=== PATIENT | male | born 1950 | race Caucasian/White ===

== ENCOUNTER → 2017-11-24 | Day surgery (SDC) | payer OTHER ==
[2017-11-17 12:34] VITALS: BMI 22.0
[~2017-11-24] VITALS: Ht 175.3 cm; Wt 68.2 kg
[~2017-11-24] MED LIST: FOLI1TAB8 PO; FURO-85 PO; LIDOCAINE HCL 2% 2 ML VIAL (20MG/ML) ONE; MCRK20 PO; MGNO400 PO; PRLSR20 PO; PROPOFOL IV EMULSION 10 MG/ML 20 ML VIAL ONE; SODIUM CHLORIDE 0.9% 500ML 500 ML IV ONE
--- NOTE | 2017-11-24 08:36 | Endo History and Physical ---
History & Physical Date of Service: November 24, 2017. 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 Past Surgical History Hx Cardiac Surgery: No Hx Internal Defibrillator: No Hx Pacemaker: No Hx Abdominal Surgery: No Hx of Implantable Prosthesis: No Hx Post-Op Nausea and Vomiting: No Hx Cancer Surgery: No Hx Thoracic Surgery: No Hx Orthopedic: No Hx Urinary Tract Surgery: No Family History Esophogeal CA Social History Smoking Status: Current Every Day Smoker Hx Substance Use: No Hx Alcohol Use: Yes ( AROUND 10 SHOTS OF NICO CHRISTINE A DAY) Allergies Coded Allergies: No Known Allergies (Verified , 11/17/17) Current Medications Reported Home Medications Medications Dose Route/Sig Max Daily Dose Days Date Category Prilosec (Omeprazole) 20 Mg Capcr 20 Mg PO DAILY 11/17/17 Reported Lasix (Furosemide) 20 Mg Tab 1 Tab PO DAILY 90 11/17/17 Reported Klor-Con M20 (Potassium Chloride) 20 Meq Tabcr 20 Meq PO DAILY 06/11/17 Rx Magnesium-Oxide (Magnesium Oxide) 400 Mg Tab 400 Mg PO BID 30 06/11/17 Rx Folvite (Folic Acid) 1 Mg Tab 1 Mg PO DAILY 06/09/17 Reported Vital Signs Weight (Kilograms): 68.18 Height (Feet): 5 Height (Inches): 9 Physical Exam General Appearance: no apparent distress Respiratory/Chest: Auscultation: breath sounds normal, no rhonchi Cardiovascular: Heart Auscultation: RRR Abdomen: Inspection & Palpation: soft, non-distended Assessment and Plan Stable for EGD
[2017-11-24 08:53] VITALS: Ht 175.3 cm; Wt 68.2 kg
--- NOTE | 2017-11-24 10:16 | GI REPORT ---
Patient Name: Howie Cunningham Procedure Date: 11/24/2017 9:38 AM Date of : 1950 Admit Type: Outpatient Age: 67 Gender: Male Attending MD: John Butler MD Procedure: Upper GI endoscopy Providers: John Butler MD Referring MD: Lam Perry Indications: Cirrhosis rule out esophageal varices Medicines: Monitored Anesthesia Care Complications: No immediate complications. Estimated Blood Loss: Estimated blood loss: none. Procedure: Pre-Anesthesia Assessment: - Prior to the procedure, a History and Physical was performed, and patient medications and allergies were reviewed. The patient is competent. The risks and benefits of the procedure and the sedation options and risks were discussed with the patient. All questions were answered and informed consent was obtained. Patient identification and proposed procedure were verified by the physician and the nurse in the procedure room. Mental Status Examination: alert and oriented. Airway Examination: normal oropharyngeal airway and neck mobility. Respiratory Examination: clear to auscultation. CV Examination: normal. ASA Grade Assessment: III - A patient with severe systemic disease. After reviewing the risks and benefits, the patient was deemed in satisfactory condition to undergo the procedure. The anesthesia plan was to use monitored anesthesia care (MAC). Immediately prior to administration of medications, the patient was re-assessed for adequacy to receive sedatives. The heart rate, respiratory rate, oxygen saturations, blood pressure, adequacy of pulmonary ventilation, and response to care were monitored throughout the procedure. The physical status of the patient was re-assessed after the procedure. After obtaining informed consent, the endoscope was passed under direct vision. Throughout the procedure, the patient's blood pressure, pulse, and oxygen saturations were monitored continuously. The scope was introduced through the mouth, and advanced to the second part of duodenum. The upper GI endoscopy was accomplished without difficulty. The patient tolerated the procedure well. Findings: The Z-line was found 40 cm from the incisors. Grade I, single column varices were found in the lower third of the esophagus. No red liz sign. Severe portal hypertensive gastropathy was found in the gastric fundus and in the gastric body. A single 8 mm sessile polyp was found in the duodenal bulb. The polyp was removed with a saline injection-lift technique using a hot snare. Resection and retrieval were complete. Verification of patient identification for the specimen was done by the physician and nurse using the patient's name and date. To prevent bleeding after the polypectomy, three hemostatic clips were successfully placed (MR conditional). There was no bleeding at the end of the procedure. The second portion of the duodenum was normal. Impression: - Z-line, 40 cm from the incisors. - Grade I esophageal varices. - Portal hypertensive gastropathy. - A single duodenal polyp. Resected and retrieved. Clips (MR conditional) were placed. - Normal second portion of the duodenum. Recommendation: - Discharge patient to home. - Full liquid diet today. - Continue Prilosec (omeprazole) 20 mg PO daily. - Repeat upper endoscopy in 6 months for surveillance of the varices. - Can start a beta sandra with dosage titrated by the heart rate. - Return to referring physician. John Butler MD 11/24/2017 10:15:32 AM This report has been signed electronically. Note Initiated On: 11/24/2017 9:38 AM Number of Addenda: 0 I attest to the content of the Intraoperative Record and orders documented therein, exceptions below {[id number]}
--- NOTE | 2017-11-24 10:17 | Discharge Instructions ---
Endoscopy Patient Instructions Date / Procedure(s) Performed November 24, 2017. EGD Allergy Information Coded Allergies: No Known Allergies (Verified , 11/17/17) Discharge Date / Findings November 24, 2017. Grade I esophageal Varices. Portal HTN gastropathy Duodenal polyp, removed and clipped. Provider Instructions Activity Restrictions - No exercising or heavy lifting for 24 hours. - Do not drink alcohol the day of the procedure. - Do not drive a car or operate machinery until the day after the procedure. - Do not make any important decisions or sign important papers in 24 hours after the procedure. Following Day: - Return to full activity which may include returning to work/school. Diet Start your diet with liquids and light foods (jello, soup, juice, toast). Then eat your usual diet if not nauseated. Treatment For Common After Affects For mild abdominal pain, bloating, or excessive gas: - Rest - Eat lightly - Lie on right side Follow-Up Information Follow-up with DR DUCKWORTH as scheduled Anesthesia Information What You Should Know You have had a procedure that required some medicine to reduce anxiety and discomfort. This treatment is called moderate sedation. After receiving the treatment, you may be sleepy, but you will be able to breathe on your own. The effects of the treatment may last for several hours. Follow these instructions along with Activity/Diet recommendations noted above: * Do NOT do anything where dizziness or clumsiness would be dangerous. * Rest quietly at home today, then you can be up and about tomorrow. * Have a responsible person stay with you the rest of today. * You may have had an I.V. today. If so, you may take the dressing off later today. Recommendations Call your doctor if: * Trouble breathing * Continuous vomiting for more than 24 hours * Temperature above 101 degrees * Severe abdominal pain or bloating * Pain not relieved by pain medicine ordered * There is increased drainage or redness from any incision * A large amount of rectal bleeding greater than 2-3 tablespoons. (If you had a polyp/s removed or have hemorrhoids, a small amount of blood - from the rectum is to be expected.) * You have any unanswered questions or concerns. IN THE EVENT OF A SERIOUS EMERGENCY, GO TO THE NEAREST EMERGENCY ROOM Your discharge instructions were prepared by provider John Butler. Patient Instructions Signature Page Howie Marisa Patient (or Guardian) Signature/Date: I have read and understand the instructions given to me by my caregivers. Caregiver/RN/Doctor Signature/Date: The above-named patient and/or guardian has received patient instructions on this date. + Original Patient Signature Page (only) stays with chart. Please make copy for patient.
--- NOTE | 2017-11-24 10:30 | Anesthesiology Progress Note ---
Anesthesia Post Op Note Date & Time November 24, 2017 at 10:29 Vital Signs Pain Intensity: 2 Vital Signs Past 12 Hours Date Time Temp Pulse Resp B/P (MAP) Pulse Ox O2 Delivery O2 Flow Rate FiO2 11/24/17 10:24 89 18 129/87 (101) 97 Room Air 11/24/17 10:09 36.5 92 18 95/61 (72) 97 Room Air 11/24/17 08:52 36.5 88 18 126/72 (90) 100 Room Air Notes Mental Status: alert / awake / arousable, participated in evaluation Pt Amnestic to Procedure: Yes Nausea / Vomiting: adequately controlled Pain: adequately controlled Airway Patency, RR, SpO2: stable & adequate BP & HR: stable & adequate Hydration State: stable & adequate Anesthetic Complications: no major complications apparent
[2017-11-24 11:02] VITALS: BP 121/93; PULSE 87; O2SAT 98
== END | disposition home or self-care (01) ==
LOC: C.GI 08:19
PROVIDERS: ATTEND Student in an Organized Health Care Education/Training Program
DX: K70.30 Alcoholic cirrhosis of liver without ascites (principal); I85.00 Esophageal varices without bleeding; K31.89 Other diseases of stomach and duodenum; I10 Essential (primary) hypertension; Z80.0 Family history of malignant neoplasm of digestive organs; F17.200 Nicotine dependence, unspecified, uncomplicated; Z79.899 Other long term (current) drug therapy

== ENCOUNTER 2020-12-09 20:09 | Inpatient (IN) ==
[2020-12-09] MEDS ORDERED: SODIUM CHLORIDE 0.9% 1000ML 1,000 ML IV STA (20:40)
--- NOTE | 2020-12-09 20:51 | Emergency Department Note ---
Impression & Plan Chills with fever, Nausea & vomiting, Elevated WBC count, Diarrhea ED Provider Note Provider: Jean-Pierre Ribeiro MD DATE OF SERVICE: 12/09/2020 CHIEF COMPLAINT: Fevers, nausea vomiting, diarrhea HISTORY OF PRESENT ILLNESS: Patient is a 70-year-old gentleman past medical history of cirrhosis and hypertension presenting here today reporting that today he began to experience a brief period lasting several minutes of the lower abdominal pain but then felt decreased appetite and chills throughout the day. States he developed a fever of 101 Fahrenheit and was not feeling very good. States he was nauseous and vomited and had an episode or 2 of some watery diarrhea. Denies any blood in this. Denies any falls or syncope. Denies any chest pain or shortness of breath. Patient states about 2 weeks ago he had carotid stenting done at [facility] since that time had a little bit of pressure on the right side of his head but this unchanged. Denies any new numbness or weakness or acute visual changes. Patient has been taking aspirin and Plavix and took this later this afternoon around 3 PM as he was feeling little bit off; usually takes it around noon. States upon arrival here at the emergency department he is feeling improved. Denies significant plaints now. Denies abdominal tenderness. Denies recent sick contacts. Patient denies recent antibiotics. REVIEW OF SYSTEMS: A total of 10 review of systems was obtained and negative except as stated above in the HPI. PAST MEDICAL HISTORY: As noted above MEDICATIONS: Reviewed home medications includes full dose aspirin and Plavix SOCIAL HISTORY: Lives at home with , occasional alcohol PHYSICAL EXAM: GENERAL: alert and oriented in no acute distress on stretcher Head: normocephalic and atraumatic EYES: No injection, discharge or icterus. NECK: Trachea midline. Supple. ENT: Mucous membranes pink and moist. LUNGS: Airway patent. No retractions. Breath sounds clear HEART: Regular rate and rhythm. No chest wall tenderness ABDOMEN: Soft and non-tender, without guarding or rebound. No masses appreciated. SKIN: Acyanotic, warm, dry, without rashes EXTREMITIES: 1+ lower extremity edema. Some slight tenderness of the bilateral feet and slight decrease in sensation here which he states is at baseline. NEUROLOGICAL: No aphasia. No facial droop or slurred speech. No significant numbness in the upper extremities. Reports a little bit of chronic numbness in the lower extremities related to his underlying neuropathy. EK beats. Sinus tachycardia. No PVC or PAC. No acute ST segment elevation or depression with left axis. QTC 471. CONTINUOUS CARDIAC MONITORING: was ordered and showed a heart rate of 90s-120s bpm in normal sinus rhythm to sinus tachycardia 1 CXR: Per my interpretation no evidence acute pneumothorax or pneumonia. No cardiomegaly. No pleural effusion. Patient's laboratory studies and imaging reviewed. Differential includes Infection, dehydration, metabolic abnormality, hypo/hyperglycemia, electrolyte disturbance, anemia, hypoxia, cardiac sources, intracerebral event, toxicologic, neurologic, as well as other pathologies. IMPRESSION/MEDICAL DECISION MAKING: Patient presents here complaining of feeling off today with fever nausea vomiting slight diarrhea and very transient abdominal discomfort. Patient states he feels better now. Benign abdomen at this point does have a lower suspicion for acute intra-abdominal pathology. Afebrile here. Did take some as pirin this afternoon one of his normal medications. Wonder if this caused his fever to break it him to feel improved. Does report significant chills earlier as well. Denies any shortness of breath. Denies any new neurological symptoms. Little bit of dull head pressure he reports that this is been chronic since carotid stenting 2 weeks ago. Slight tachycardic here but not hypoxic or febrile. Leukocytosis of 17. Lactate of 2.4; very slightly elevated but I doubt septic shock. Procalcitonin not significantly elevated. UA not suggestive of infection. Covid test negative. No evidence of transaminitis. No evidence of pancreatitis. Benign abdomen at this point. No signs of electrolyte abnormality or renal dysfunction. Multiple discussions with the patient and his daughter at bedside. Given his complaints of fever and chills earlier with a leukocytosis recommended further observation here in the hospital. Patient strongly wished to go home. Discussed that I do not have a clear source of infection at this point. Does not seem consistent with C. difficile colitis. There is no other sick contacts. Patient does not appear meningitic there is no significant swelling of his neck. I doubt he has a carotid stent infection. Patient denies any open wounds. After multiple discussions the patient developed some chills and was feeling quite cold and his daughter was able to convince him to stay. We will empirically give him a dose of ceftriaxone at this time. Blood cultures and urine culture have been obtained. Patient did receive 2 L of IV fluid. DIAGNOSIS: Fever and chills, nausea and vomiting, elevated white blood cell count, diarrhea DISPOSITION: Hospitalist will evaluate Patient was agreeable with this plan. Past Med/Surg History Medical History (Updated 12/09/20 @ 23:20 by Jean-Pierre Ribeiro M.D.) Alcoholic cirrhosis Barretts esophagus Bulging disc STEROID INJECTIONS Chronic back pain Fatty liver GERD (gastroesophageal reflux disease) Hearing deficit Hypertension Peripheral neuropathy Surgical History History of colonoscopy History of esophagogastroduodenoscopy (EGD) History of nasal surgery GROWTH REMOVAL History of tooth extraction Pilonidal cyst REMOVAL Family History (Updated 06/06/18 @ 08:28 by Lety Ortiz RN) Grandmother Family history of diabetes mellitus Family/Other Family history of diabetes mellitus Brother Family history of esophageal cancer Social History Smoking Status: Current every day smoker Tobacco Type: Cigarettes Cigarettes Per Day: 20 CIG DAILY; Second Hand Exposure: Yes; Hx Alcohol Use: Yes Alcohol type: hard liquor Hx Substance Use: No Preferred Language: Wallisian Communication Ability: Effective Hospice Executive Director Required: No Beliefs That Will Affect Care: None Current Living Situation: Spouse Feels Safe at Home: Yes Assistive Devices: Cane, Denture - Upper, Denture - Lower, Glasses and Hearing Aid - Bilateral Allergies Allergies Allergy/AdvReac Type Severity Reaction Status Date / Time No Known Allergies Allergy Unknown Verified 12/09/20 20:52 Home Meds Home Medications Medication Instructions Recorded Confirmed folic acid 1 mg PO DAILY 06/06/18 12/09/20 furosemide [Lasix] 20 mg PO QAM 06/06/18 12/09/20 omeprazole 20 mg PO QAM 06/06/18 12/09/20 potassium chloride 20 meq PO QAM 06/06/18 12/09/20 thiamine HCl (vitamin B1) [Vitamin 100 mg PO DAILY 06/06/18 12/09/20 B-1] aspirin 325 mg PO DAILY 12/09/20 12/09/20 atorvastatin 40 mg PO DAILY 12/09/20 12/09/20 cholecalciferol (vitamin D3) 10 mcg PO DAILY 12/09/20 12/09/20 [Vitamin D3] clopidogrel [Plavix] 75 mg PO DAILY 12/09/20 12/09/20 cyanocobalamin (vitamin B-12) 1,000 mcg PO DAILY 12/09/20 12/09/20 [Vitamin B-12] magnesium oxide 400 mg PO BID 12/09/20 12/09/20 propranolol 10 mg PO BID 12/09/20 12/09/20 Results & Data (ED) Vital Signs Vital Signs - 24 hr 12/09/20 20:20 12/09/20 20:49 12/09/20 20:55 Temperature 36.9 C Temperature Source Temporal Artery Scan Pulse Rate 122 H 104 H Pulse Rate [Apical] 107 H Pulse Rate from SpO2 Sensor 104 H Pulse Rhythm [Apical] Regular Pulse Strength [Apical] Normal Respiratory Rate 18 17 18 Respiratory Effort / Characteristics Non-Labored Spontaneous Non-Labored Spontaneous Respiratory Depth Normal Normal Respiratory Pattern Regular Blood Pressure 121/81 138/79 Blood Pressure [Left Arm] 138/79 Blood Pressure Mean 94 98 Blood Pressure Mean [Left Arm] 98 Blood Pressure Position Sitting Blood Pressure Position [Left Arm] Lying Pulse Oximetry 98 100 100 Oxygen Delivery Method Room Air Room Air Sepsis Recent Fever Within 48 Hours No Sepsis New/Unexplained Change in Mental Status N/A Sepsis Action Taken by Nursing No Action Required 12/09/20 21:58 12/09/20 23:00 12/09/20 23:30 Temperature Temperature Source Pulse Rate 101 H 104 H 106 H Pulse Rate [Apical] Pulse Rate from SpO2 Sensor 101 H 104 H 106 H Pulse Rhythm [Apical] Pulse Strength [Apical] Respiratory Rate 17 20 18 Respiratory Effort / Characteristics Respiratory Depth Respiratory Pattern Blood Pressure 148/81 H Blood Pressure [Left Arm] Blood Pressure Mean 103 Blood Pressure Mean [Left Arm] Blood Pressure Position Blood Pressure Position [Left Arm] Pulse Oximetry 100 100 99 Oxygen Delivery Method Room Air Sepsis Recent Fever Within 48 Hours Sepsis New/Unexplained Change in Mental Status Sepsis Action Taken by Nursing Laboratory Data Result diagrams: 12/09/20 21:11 12/09/20 21:11 Lab Results 12/09/20 12/09/20 12/09/20 Range/Units 20:57 20:57 21:11 WBC (4.8-10.8) K/uL RBC (4.7-6.1) M/uL Hgb (14.0-18.0) g/dL Hct (42-52) % MCV (80-100) fL MCH (25-34) pg MCHC (32-36) g/dL RDW Std Deviation (36.4-46.3) fL RDW Coeff of Gucci (11.5-14.5) % Plt Count (130-400) K/uL MPV (7.4-10.4) fL Immature Gran % (Auto) % Neut % (Auto) % Lymph % (Auto) % [place] % (Auto) % Eos % (Auto) % Baso % (Auto) % Neut # (Auto) (1.4-6.5) K/uL Lymph # (Auto) (1.2-3.4) K/uL [place] # (Auto) (0.11-0.59) K/uL Eos # (Auto) (0-0.5) K/uL Baso # (Auto) (0-0.2) K/uL Immature Gran # (Auto) (0.00-0.02) K/uL PT 10.3 (9.0-12.0) Seconds INR 1.0 (0.9-1.1) Sodium (136-145) mmol/L Potassium (3.5-5.1) mmol/L Chloride (98-107) mmol/L Carbon Dioxide (21-32) mmol/L Anion Gap (3-11) BUN (7-18) mg/dl Creatinine (0.6-1.4) mg/dl Est Cr Clr Drug Dosing ml/min Est GFR ( Amer) ml/min Est GFR (Non-Af Amer) ml/min BUN/Creatinine Ratio (10-20) Glucose (70-99) mg/dl Lactate (0.4-2.0) mmol/L Calcium (8.5-10.1) mg/dl Total Bilirubin (0.2-1) mg/dl AST (15-37) U/L ALT (12-78) U/L Alkaline Phosphatase (45-117) U/L Troponin I (0-0.045) ng/ml Total Protein (6.4-8.2) gm/dl Albumin (3.4-5.0) gm/dl Globulin (2.5-4.0) gm/dl Albumin/Globulin Ratio (0.9-2) Lipase (73-393) U/L Procalcitonin (0-0.5) ng/ml Urine Color Urine Appearance (Clear) Urine pH (4.5-7.5) Ur Specific [place] (1.000-1.030) Urine Protein (Negative) Urine Glucose (UA) (Negative) Urine Ketones (Negative) Urine Blood (Negative) Urine Nitrite (Negative) Urine Bilirubin (Negative) Urine Urobilinogen (Negative) Ur Leukocyte Esterase (Negative) Urine WBC (Auto) (0-5) /hpf Urine RBC (Auto) (0-4) /hpf U Hyaline Cast (Auto) (0-5) /lpf U Epithel Cells (Auto) (0-5) /lpf Urine Bacteria (Auto) (Negative) COVID-19 Eval Order Covid19 at [facility] SARS-CoV-2 (PCR) NEGATIVE (Negative) 12/09/20 12/09/20 12/09/20 Range/Units 21:11 21:11 21:11 WBC 17.32 H (4.8-10.8) K/uL RBC 4.27 L (4.7-6.1) M/uL Hgb 14.3 (14.0-18.0) g/dL Hct 42.6 (42-52) % MCV 99.8 (80-100) fL MCH 33.5 (25-34) pg MCHC 33.6 (32-36) g/dL RDW Std Deviation 50.9 H (36.4-46.3) fL RDW Coeff of Gucci 14.1 (11.5-14.5) % Plt Count 269 (130-400) K/uL MPV 10.3 (7.4-10.4) fL Immature Gran % (Auto) 0.3 % Neut % (Auto) 89.5 % Lymph % (Auto) 5.8 % [place] % (Auto) 4.2 % Eos % (Auto) 0.0 % Baso % (Auto) 0.2 % Neut # (Auto) 15.51 H (1.4-6.5) K/uL Lymph # (Auto) 1.00 L (1.2-3.4) K/uL [place] # (Auto) 0.72 H (0.11-0.59) K/uL Eos # (Auto) 0.00 (0-0.5) K/uL Baso # (Auto) 0.04 (0-0.2) K/uL Immature Gran # (Auto) 0.05 H (0.00-0.02) K/uL PT (9.0-12.0) Seconds INR (0.9-1.1) Sodium 138 (136-145) mmol/L Potassium 3.8 (3.5-5.1) mmol/L Chloride 104 (98-107) mmol/L Carbon Dioxide 25 (21-32) mmol/L Anion Gap 9.0 (3-11) BUN 9 (7-18) mg/dl Creatinine 0.98 (0.6-1.4) mg/dl Est Cr Clr Drug Dosing 72.1 ml/min Est GFR ( Amer) 91.4 ml/min Est GFR (Non-Af Amer) 78.9 ml/min BUN/Creatinine Ratio 9.6 L (10-20) Glucose 112 H (70-99) mg/dl Lactate (0.4-2.0) mmol/L Calcium 9.6 (8.5-10.1) mg/dl Total Bilirubin 0.9 (0.2-1) mg/dl AST 26 (15-37) U/L ALT 25 (12-78) U/L Alkaline Phosphatase 102 (45-117) U/L Troponin I < 0.015 (0-0.045) ng/ml Total Protein 8.3 H (6.4-8.2) gm/dl Albumin 4.0 (3.4-5.0) gm/dl Globulin 4.3 H (2.5-4.0) gm/dl Albumin/Globulin Ratio 0.9 (0.9-2) Lipase 102 (73-393) U/L Procalcitonin 0.06 (0-0.5) ng/ml Urine Color Urine Appearance (Clear) Urine pH (4.5-7.5) Ur Specific [place] (1.000-1.030) Urine Protein (Negative) Urine Glucose (UA) (Negative) Urine Ketones (Negative) Urine Blood (Negative) Urine Nitrite (Negative) Urine Bilirubin (Negative) Urine Urobilinogen (Negative) Ur Leukocyte Esterase (Negative) Urine WBC (Auto) (0-5) /hpf Urine RBC (Auto) (0-4) /hpf U Hyaline Cast (Auto) (0-5) /lpf U Epithel Cells (Auto) (0-5) /lpf Urine Bacteria (Auto) (Negative) COVID-19 Eval Order SARS-CoV-2 (PCR) (Negative) 12/09/20 12/09/20 12/09/20 Range/Units 21:11 22:09 23:26 WBC (4.8-10.8) K/uL RBC (4.7-6.1) M/uL Hgb (14.0-18.0) g/dL Hct (42-52) % MCV (80-100) fL MCH (25-34) pg MCHC (32-36) g/dL RDW Std Deviation (36.4-46.3) fL RDW Coeff of Gucci (11.5-14.5) % Plt Count (130-400) K/uL MPV (7.4-10.4) fL Immature Gran % (Auto) % Neut % (Auto) % Lymph % (Auto) % [place] % (Auto) % Eos % (Auto) % Baso % (Auto) % Neut # (Auto) (1.4-6.5) K/uL Lymph # (Auto) (1.2-3.4) K/uL [place] # (Auto) (0.11-0.59) K/uL Eos # (Auto) (0-0.5) K/uL Baso # (Auto) (0-0.2) K/uL Immature Gran # (Auto) (0.00-0.02) K/uL PT (9.0-12.0) Seconds INR (0.9-1.1) Sodium (136-145) mmol/L Potassium (3.5-5.1) mmol/L Chloride (98-107) mmol/L Carbon Dioxide (21-32) mmol/L Anion Gap (3-11) BUN (7-18) mg/dl Creatinine (0.6-1.4) mg/dl Est Cr Clr Drug Dosing ml/min Est GFR ( Amer) ml/min Est GFR (Non-Af Amer) ml/min BUN/Creatinine Ratio (10-20) Glucose (70-99) mg/dl Lactate 2.4 H* 1.9 (0.4-2.0) mmol/L Calcium (8.5-10.1) mg/dl Total Bilirubin (0.2-1) mg/dl AST (15-37) U/L ALT (12-78) U/L Alkaline Phosphatase (45-117) U/L Troponin I (0-0.045) ng/ml Total Protein (6.4-8.2) gm/dl Albumin (3.4-5.0) gm/dl Globulin (2.5-4.0) gm/dl Albumin/Globulin Ratio (0.9-2) Lipase (73-393) U/L Procalcitonin (0-0.5) ng/ml Urine Color Dark Yellow Urine Appearance Clear (Clear) Urine pH 6.0 (4.5-7.5) Ur Specific [place] 1.024 (1.000-1.030) Urine Protein Negative (Negative) Urine Glucose (UA) Negative (Negative) Urine Ketones Trace H (Negative) Urine Blood Negative (Negative) Urine Nitrite Negative (Negative) Urine Bilirubin 1+ H (Negative) Urine Urobilinogen Negative (Negative) Ur Leukocyte Esterase Trace H (Negative) Urine WBC (Auto) 1-5 (0-5) /hpf Urine RBC (Auto) 0-4 (0-4) /hpf U Hyaline Cast (Auto) 1-5 (0-5) /lpf U Epithel Cells (Auto) 5-10 H (0-5) /lpf Urine Bacteria (Auto) Negative (Negative) COVID-19 Eval Order SARS-CoV-2 (PCR) (Negative) Administered Medications Discontinued Medications Sodium Chloride (Nss 1000ml) 1,000 mls @ 999 mls/hr IV .Q1H1M STA Stop: 12/09/20 21:40 Last Infusion: 12/09/20 22:30 Dose: 0 mls/hr Documented by: [id number] Admin: 12/09/20 21:27 Dose: 999 mls/hr Documented by: [id number] Ceftriaxone Sodium (Rocephin) 2,000 mg in 70 mls @ 140 mls/hr IV NOW STA Stop: 12/09/20 23:37 Last Infusion: 12/10/20 00:01 Dose: 0 mls/hr Documented by: [id number] Admin: 12/09/20 23:22 Dose: 140 mls/hr Documented by: [id number] Sodium Chloride (Nss 1000ml) 1,000 mls @ 999 mls/hr IV .Q1H1M ONE Stop: 12/10/20 00:19 Last Infusion: 12/10/20 00:29 Dose: 0 mls/hr Documented by: [id number] Admin: 12/09/20 23:22 Dose: 999 mls/hr Documented by: [id number] Discharge Plan Visit Data Chief Complaint: Abdominal Pain Stated Complaint: AB PAIN, CHILLS, VOMIT ED Provider: Jean-Pierre Ribeiro Discharge Problem: Chills with fever, Nausea & vomiting, Elevated WBC count, Diarrhea Patient Disposition: Being Evaluated by Hospitalist Prescriptions Prescriptions: No Action thiamine HCl (vitamin B1) [Vitamin B-1] 100 mg Tablet 100 mg PO DAILY RF: 0 omeprazole 20 mg Capsule,Delayed Release(Dr/Ec) 20 mg PO QAM RF: 0 folic acid 1 mg Tablet 1 mg PO DAILY RF: 0 furosemide [Lasix] 20 mg Tablet 20 mg PO QAM RF: 0 potassium chloride 20 mEq Tablet Extended Release 20 meq PO QAM RF: 0 atorvastatin 40 mg tablet 40 mg PO DAILY RF: 0 cyanocobalamin (vitamin B-12) [Vitamin B-12] 1,000 mcg Tablet 1,000 mcg PO DAILY RF: 0 clopidogrel [Plavix] 75 mg Tablet 75 mg PO DAILY RF: 0 propranolol 10 mg Tablet 10 mg PO BID RF: 0 aspirin 325 mg Tablet,Delayed Release (Dr/Ec) 325 mg PO DAILY RF: 0 cholecalciferol (vitamin D3) [Vitamin D3] 10 mcg (400 unit) Tablet 10 mcg PO DAILY RF: 0 magnesium oxide 400 mg magnesium Tablet 400 mg PO BID RF: 0 Referrals Referrals: Lizeth Dixon MD [Primary Care Provider] - Discharge Problem: Nausea & vomiting Qualifiers: Vomiting type: unspecified Vomiting Intractability: non-intractable Qualified Code(s): R11.2 - Nausea with vomiting, unspecified Elevated WBC count Qualifiers: Leukocytosis type: unspecified Qualified Code(s): D72.829 - Elevated white blood cell count, unspecified Diarrhea Qualifiers: Diarrhea type: unspecified type Qualified Code(s): R19.7 - Diarrhea, unspeci fied
[2020-12-09 21:29] LABS: Basophils # (auto) 0.04 K/uL (0-0.2); Basophils % (auto) 0.2 %; Hematocrit (blood only) 42.6 % (42-52); Hemoglobin 14.3 g/dL (14.0-18.0); Immature Granulocytes # (auto) 0.05 K/uL (0.00-0.02); Immature Granulocytes % (auto) 0.3 %; Lymphocytes % (auto) 5.8 %; Mean Corpuscular Hemoglobin 33.5 pg (25-34); Mean Corpuscular Hgb Conc 33.6 g/dL (32-36); Mean Corpuscular Volume 99.8 fL (80-100); Mean Platelet Volume 10.3 fL (7.4-10.4); Monocytes # (auto) 0.72 K/uL (0.11-0.59); Monocytes % (auto) 4.2 %; Neutrophils # (auto) 15.51 K/uL (1.4-6.5); Neutrophils % (auto) 89.5 %; Platelet Count 269 K/uL (130-400); RDW Coefficient of Variation 14.1 % (11.5-14.5); RDW Standard Deviation 50.9 fL (36.4-46.3); Red Blood Count 4.27 M/uL (4.7-6.1); White Blood Count 17.32 K/uL (4.8-10.8)
[2020-12-09 21:41] LABS: Prothrombin Time 10.3 Seconds (9.0-12.0)
[2020-12-09 21:50] LABS: Alanine Aminotransferase 25 U/L (12-78); Aspartate Aminotransferase 26 U/L (15-37); BUN Creatinine Ratio 9.6 (10-20); Blood Urea Nitrogen 9 mg/dl (7-18); Calcium 9.6 mg/dl (8.5-10.1); Carbon Dioxide 25 mmol/L (21-32); Chloride 104 mmol/L (98-107); Creatinine Clr Calc Pharmacy 72.1 ml/min; Est GFR (African American) 91.4 ml/min; Est GFR (Non-African American) 78.9 ml/min; Glucose 112 mg/dl (70-99); Lipase 102 U/L (73-393); Potassium 3.8 mmol/L (3.5-5.1); Sodium 138 mmol/L (136-145)
[2020-12-09 21:55] LABS: Albumin Globulin Ratio 0.9 (0.9-2); Alkaline Phosphatase 102 U/L (45-117); Bilirubin,Total 0.9 mg/dl (0.2-1); Globulin 4.3 gm/dl (2.5-4.0); Total Protein 8.3 gm/dl (6.4-8.2); Troponin I < 0.015 ng/ml (0-0.045)
[2020-12-09 22:56] LABS: Appearance Urine Clear (Clear); Bacteria Urine Automated Negative (Negative); Blood Urine Negative (Negative); Color Urine Dark Yellow; Glucose Urine UA Negative (Negative); Ketones Urine Trace (Negative); Leukocyte Esterase Urine Trace (Negative); Nitrite Urine Negative (Negative); Protein Urine Negative (Negative); RBC Urine Automated 0-4 /hpf (0-4); Specific Gravity Urine 1.024 (1.000-1.030); Urobilinogen Urine Negative (Negative)
[2020-12-09 22:59] LABS: Bilirubin Urine 1+ (Negative)
[2020-12-09] MEDS ORDERED: cefTRIAXone SODIUM 2,000 MG/70 ML BAG IV STA (23:08)
[2020-12-09] MEDS ORDERED: SODIUM CHLORIDE 0.9% 1000ML 1,000 ML IV ONE (23:19)
[2020-12-10] MEDS ORDERED: ONDANSETRON INJ 2 MG/ML 2 ML VIAL ONE (01:17)
[2020-12-10] MEDS: GABAPENTIN 600 MG TAB PO ONE ×2 (01:43→03:43)
[2020-12-10] MEDS ORDERED: ONDANSETRON INJ 2 MG/ML 2 ML VIAL IV PRN (01:47)
[2020-12-10] MEDS ORDERED: LORazepam 2 MG/4 ML VIAL IV PRN (01:47)
[2020-12-10] MEDS ORDERED: ATIVAN IV ALCOHOL WITHDRAWL IV PRN (01:47)
[2020-12-10] MEDS ORDERED: LORazepam 3 MG/6 ML VIAL IV PRN (01:47)
[2020-12-10] MEDS ORDERED: LORazepam 1 MG/2 ML VIAL IV PRN (01:47)
[2020-12-10] MEDS ORDERED: SODIUM CHLORIDE 0.9% 1000ML 1,000 ML IV SCH (01:47)
[2020-12-10] MEDS ORDERED: GABAPENTIN 1200MG ALCOHOL WITHDRAWAL LOAD PO STA (01:47)
[2020-12-10] MEDS ORDERED: GABAPENTIN 600 MG TAB PO ONE (01:47)
[2020-12-10] MEDS ORDERED: NITROGLYCERIN SL 0.4 MG/TAB TAB SL PRN (01:47)
[2020-12-10] MEDS ORDERED: MULTI-VITAMIN INFUSION 10 ML, THIAMINE HCL 100 MG, FOLIC ACID 1 MG in SODIUM CHLORIDE 0... IV ONE (02:30)
--- NOTE | 2020-12-10 02:31 | History and Physical Report ---
DATE OF ADMISSION: 12/09/2020 CHIEF COMPLAINT: Fever, abdominal discomfort. HISTORY OF PRESENT ILLNESS: A 70-year-old male with past medical history significant for COPD, dyspnea on exertion, portal hypertension, history of hypertension, alcoholic cirrhosis of liver, GERD, vitamin D deficiency, idiopathic peripheral neuropathy, precordial pain, frequent falls, ongoing tobacco use, bilateral carotid stenosis, recently at [place], had bilateral carotid stent placement, comes because of fever, nausea, abdominal discomfort and diarrhea. The patient says in the morning had temperature of 101, was nauseous and had couple episodes of diarrhea and abdominal discomfort and feeling cold and chilly. His daughter brought him to the hospital. He is feeling fine,and wanted to go home, but daughter wanted him to stay and he agreed. Somewhat shaky. He says he smokes 1 packet cigarette daily and drinks alcohol 2 shots of whiskey when he drinks and he says he can go without drink 3-4 days. He says he used to drink more before. Currently, resting comfortably and hemodynamically stable. Denies any headache, no blurred vision, no earache, no runny nose, no sore throat. He has chronic cough, no chest pain. Currently, no shortness of breath, no nausea, some abdominal discomfort. Did not have any more bowel movement. Normal bladder movements. Ambulating okay at home without any support. ALLERGIES: No known drug allergies. PAST MEDICAL HISTORY: As mentioned above. PAST SURGICAL HISTORY: Internal carotid artery catheter placement, colonoscopy, EGD, bilateral carotid stent placement. MEDICATIONS: The patient is on aspirin 325 mg p.o. daily, atorvastatin 40 mg p.o. daily, vitamin D 10 mcg p.o. daily, Plavix 75 mg p.o. daily, vitamin B12 1000 mcg p.o. daily, folic acid 1 mg p.o. daily, Lasix 20 mg p.o. a.m., magnesium oxide 400 mg p.o. b.i.d., omeprazole 20 mg p.o. a.m., potassium chloride 20 mEq p.o. a.m., propranolol 10 mg p.o. b.i.d., vitamin B1 100 mg p.o. daily. FAMILY HISTORY: Significant for brother had esophageal cancer. Mother has heart failure. Father of cancer. Sister had cancer and heart attack. SOCIAL HISTORY: , smokes 1 pack a day for 40 years. Alcohol, patient is drinking 2 shots of whiskey, once in a while he can go without drinking 3-4 days. REVIEW OF SYMPTOMS: As per HPI. Rest of review of systems negative. PHYSICAL EXAMINATION: GENERAL: The patient is of moderate build, not in acute distress, somewhat shaky. VITAL SIGNS: Temperature 36.9, pulse 106, respiratory rate 18, blood pressure 148/81, oxygen 97% on room air. HEENT: Pupils equal, round, reactive to light. Oral mucosa moist. NECK: No JVD, no neck masses. CARDIOVASCULAR: S1, S2 heard, regular rate and rhythm, no murmur, no gallop. RESPIRATORY SYSTEM: Normal AP diameter. No accessory muscle use. No wheezing, no crackles. ABDOMEN: Soft, bowel sounds present, nontender. No distention. CENTRAL NERVOUS SYSTEM: Cranial nerves II-XII grossly intact, nonfocal. EXTREMITIES: No edema, no erythema. LABORATORY DATA: WBC 17.3, hemoglobin 14.3, hematocrit 42.6, platelets 269. PT 10.3, INR 1. Sodium 138, potassium 3.8, chloride 104, bicarbonate 25, BUN 9, creatinine 0.9, serum glucose 112. Lactate was 2.4, direct bilirubin 1.9, calcium 9.6, total bilirubin 0.9, AST 26, ALT 25, alkaline phosphatase 102, troponin I less than 0.015. Procalcitonin 0.06. Urinalysis, trace leukocyte esterase. SARS-CoV-2 PCR negative. IMAGING: Chest x-ray, no acute findings. EKG: Sinus tachycardia, rate of 103, no acute ST changes seen. ASSESSMENT AND PLAN: This is a 70-year-old male who presents with nausea, abdominal discomfort, diarrhea and fever. 1. Nausea, abdominal pain, diarrhea, and fever, possible gastroenteritis, rule out any other infectious causes. ER empirically started on Rocephin, which we will continue. Follow the cultures. 2. Bilateral carotid artery stenosis, recent stent replacement . Had some pressure in head earlier but ok now. Will monitor. 3. History of alcoholism, currently the patient is reported drinking 2 shots when he drinks and says he can go without drinking for 3-4 days. The patient denies any withdrawal symptoms but because the patient is somewhat shaky, we will place him on gabapentin protocol and IV Ativan p.r.n., banana bag and continue with home thiamine from a.m. 4. History of hypertension. Continue his propranolol. 5. Hx of liver cirrhosis, On Lasix and propranolol. Monitor for volume overload. 6. Gastroesophageal reflux disease, on omeprazole. 7. Ongoing tobacco abuse, needs counseling. 8. History of chronic obstructive pulmonary disease. Currently not on any inhalers. We will monitor. 9. Deep venous thrombosis prophylaxis, sequential compression devices. DISPOSITION: Admit to med tele. Expect discharge. Follow with family doctor. Level 1 full code. Addendum:Still spiking temp. Ordered lyme scree and anaplasmosis study. Added Doxycycline. Close monitor. MTDD
[2020-12-10 05:56] LABS: Basophils # (auto) 0.02 K/uL (0-0.2); Basophils % (auto) 0.1 %; Hematocrit (blood only) 35.9 % (42-52); Hemoglobin 11.6 g/dL (14.0-18.0); Immature Granulocytes # (auto) 0.04 K/uL (0.00-0.02); Immature Granulocytes % (auto) 0.3 %; Lymphocytes # (auto) 0.99 K/uL (1.2-3.4); Lymphocytes % (auto) 6.8 %; Mean Corpuscular Hemoglobin 32.2 pg (25-34); Mean Corpuscular Hgb Conc 32.3 g/dL (32-36); Mean Corpuscular Volume 99.7 fL (80-100); Mean Platelet Volume 9.7 fL (7.4-10.4); Monocytes # (auto) 0.69 K/uL (0.11-0.59); Monocytes % (auto) 4.7 %; Neutrophils # (auto) 12.89 K/uL (1.4-6.5); Neutrophils % (auto) 88.1 %; Platelet Count 208 K/uL (130-400); RDW Coefficient of Variation 13.9 % (11.5-14.5); White Blood Count 14.63 K/uL (4.8-10.8)
[2020-12-10 06:46] LABS: Albumin Level 2.9 gm/dl (3.4-5.0); BUN Creatinine Ratio 9.9 (10-20); Bilirubin Direct 0.2 mg/dl (0-0.2); Bilirubin,Total 0.5 mg/dl (0.2-1); Calcium 7.7 mg/dl (8.5-10.1); Creatinine Clr Calc Pharmacy 105.5 ml/min; Est GFR (African American) 114.4 ml/min; Est GFR (Non-African American) 98.7 ml/min; Magnesium 1.5 mg/dl (1.8-2.4); Potassium 3.4 mmol/L (3.5-5.1); Total Protein 6.3 gm/dl (6.4-8.2)
[2020-12-10 06:52] LABS: Folate (Folic Acid) > 20.00 ng/ml (>5.38); Vitamin B12 957 pg/ml (193-986)
--- NOTE | 2020-12-10 07:07 | XRay Report ---
XR chest 1V portable CLINICAL HISTORY: Fever COMPARISON STUDY: June 09, 2017 FINDINGS: No pneumothorax. Minimal blunting of the left costophrenic angle is new since prior study and could represent small le ft pleural effusion. Possible small atelectasis at the left base. Cardiomediastinal silhouette is within normal limits in size. No significant pulmonary vascular congestion.. Aorta is calcified Osseous structures: Degenerative changes of the spine. IMPRESSION: 1. Possible atelectasis at the left base. Small left pleural effusion. 2. Atherosclerosis. ACT 112: Negative or not required by law. The above report was generated using voice recognition software. It may contain grammatical, syntax o r spelling errors. Electronically signed by: Allyssa Tierney DO 12/10/2020 7:06 AM
[2020-12-10] MEDS ORDERED: POTASSIUM CHLORIDE CRTAB 20 MEQ TABCR PO STA (07:12)
[2020-12-10] MEDS: DOXYCYCLINE HYCLATE 100 MG in DEXTROSE 5% 100 ML IV SCH ×2 (08:02→18:14)
[2020-12-10] MEDS: ACETAMINOPHEN 325 MG TAB PO PRN ×3 (08:06→23:04)
[2020-12-10] MEDS: ASPIRIN 325 MG ECTAB PO SCH (08:09)
[2020-12-10] MEDS: PANTOprazole 40 MG TAB PO SCH (08:09)
[2020-12-10] MEDS: FUROSEMIDE 20 MG TAB PO SCH (08:10)
[2020-12-10] MEDS: PROPRANOLOL HCL 10 MG TAB PO SCH ×2 (08:10→20:55)
[2020-12-10] MEDS: CLOPIDOGREL BISULFATE 75 MG TAB PO SCH (08:10)
[2020-12-10] MEDS: ATORVASTATIN 40 MG TAB PO SCH (08:10)
[2020-12-10] MEDS: FOLIC ACID 1 MG TAB PO SCH (08:10)
[2020-12-10] MEDS: THIAMINE HCL 100 MG TAB PO SCH (08:11)
[2020-12-10] MEDS: CHOLECALCIFEROL 400 UNITS 10 MCG TAB PO SCH (08:11)
[2020-12-10] MEDS: MAGNESIUM OXIDE 400 MG TAB PO SCH ×2 (08:12→20:55)
[2020-12-10] MEDS: CYANOCOBALAMIN 500 MCG TABLET (VITAMIN B-12) PO SCH (08:12)
[2020-12-10 08:57] LABS: Lyme Ab IgG w/WB Rflx Negative (Negative)
[2020-12-10] MEDS: MAGNESIUM SULFATE / D5W 1 GM/100 ML BAG IV SCH ×2 (09:01→10:59)
[2020-12-10] MEDS: GABAPENTIN 600 MG TAB PO SCH ×4 (09:03→21:38)
[2020-12-10 09:17] LABS: Lyme Ab IgM w/WB Rflx Positive (Negative)
[2020-12-10] MEDS: POTASSIUM CHLORIDE CRTAB 20 MEQ TABCR PO SCH (09:28)
--- NOTE | 2020-12-10 11:12 | Electrocardiogram Report ---
Test Reason : Blood Pressure : / mmHG Vent. Rate : 103 BPM Atrial Rate : 103 BPM P-R Int : 128 ms QRS Dur : 088 ms QT Int : 360 ms P-R-T Axes : 000 -58 057 degrees QTc Int : 471 ms Sinus tachycardia Left anterior fascicular block Nonspecific ST abnormality Anterior leads Abnormal ECG When compared with ECG of 09-JUN-2017 12:48, Premature supraventricular complexes are no longer Present Confirmed by Bhanu Castillo ([id number]) on 12/10/2020 11:12:07 AM Referred By: REFERRED SELF Confirmed By:Bhanu Castillo
--- NOTE | 2020-12-10 17:05 | Hospitalist Progress Note ---
Date of Service December 10, 2020 Assessment & Plan (1) Chills with fever: Presented with 1 episode of fever with chills at home Afebrile on admission but noted to have a temperature 38.2 as of today Blood culture and urine culture have been sent No pneumonia and UA does not support any infection He has been on intravenous ceftriaxone and doxycycline (2) Acute Lyme disease: Lying on immunoglobin M titer is elevated and awaiting Western blot Anaplasmosis smear is negative Possible history of tick bite and history of taking out 3 ticks from the dog recently He has been on intravenous ceftriaxone and doxycycline Awaiting blood culture (3) Gastroenteritis: Has had abdominal discomfort on admission Profuse diarrhea this morning C. difficile has been negative and stool culture sent Has been getting Imodium as needed (4) Cirrhosis: Alcoholic cirrhosis with Mayo's esophagus No acute symptoms from the Abdomen examination is benign-doubt any SBP (5) HTN (hypertension): Noted to be elevated We will continue current medications Recent bilateral carotid stenting No no acute symptoms No local tenderness DVT prophylaxis SCDs for now Admission and Anticipated Discharge Date Admission Date: December 10, 2020 Subjective 12/10/2020 The patient was seen and examined in medical telemetry unit He is a 70-year-old with past medical history of COPD, hypertension, alcoholic cirrhosis, peripheral neuropathy and status post bilateral carotid stent placement recently in [place] was admitted with fever and abdominal discomfort He has had diarrhea this morning but denies any other symptoms and wanted to go home He was seen and examined next time around noon when he wanted to sign out AMA He was noted to be shivering at the time and after long discussion he was agreed to stay for tonight He wants to sign out AMA He agreed to stay until about 3 PM tomorrow Await blood cultures Can be discharged on oral doxycycline for a total of 14 days if blood culture is negative Review of Systems Review of Systems: All systems reviewed and are unremarkable except as noted below Constitutional: + fever, + chills and + body aches Physical Exam Physical Exam: Lying in bed with shivering Constitutional: well developed, well nourished and + ill appearing Eyes: PERRL, conjunctivae normal, anicteric sclerae ENMT: external ear and nose normal, oropharynx normal Neck: trachea midline, no thyromegaly Respiratory: no respiratory distress Auscultation: lungs clear to auscultation bilaterally Cardiovascular: Rate/Rhythm: regular rate and regular rhythm Heart Sounds: no murmur Extremities: no edema Gastrointestinal (Abdomen): Inspection/Auscultation: normal bowel sounds; abdomen not distended Percussion/Palpation: abdomen soft; abdomen nontender Musculoskeletal: No acute arthritis in any joint Psychiatric: A+Ox3, euthymic affect Lymphatic: no cervical or axillary lymphadenopathy Results & Data Results & Data ([facility]) Vital Signs (Past 12 Hours) Vital Signs Temp Pulse Pulse Pulse Resp BP Pulse Ox 12/10/20 16:00 38.2 C H 105 H 18 163/89 H 99 12/10/20 11:45 36.8 C 84 14 110/71 98 12/10/20 10:22 37.1 C 86 18 12/10/20 07:45 38.4 C H 120 H 22 165/80 H 99 12/10/20 07:38 38.4 C H 120 H 22 168/80 H 99 12/10/20 07:15 37.1 C 12/10/20 07:10 110 H Laboratory Results Short CBC 12/09/20 12/10/20 Range/Units 21:11 05:43 WBC 17.32 H 14.63 H (4.8-10.8) K/uL Hgb 14.3 11.6 L (14.0-18.0) g/dL Hct 42.6 35.9 L (42-52) % Plt Count 269 208 (130-400) K/uL BMP 12/09/20 12/10/20 21:11 05:43 Sodium 138 141 Potassium 3.8 3.4 L Chloride 104 111 H Carbon Dioxide 25 25 BUN 9 7 Creatinine 0.98 0.67 D Glucose 112 H 100 H Calcium 9.6 7.7 L D Cardiac Enzymes 12/09/20 Range/Units 21:11 Troponin I < 0.015 (0-0.045) ng/ml Liver Function 12/09/20 12/10/20 Range/Units 21:11 05:43 Total Bilirubin 0.9 0.5 (0.2-1) mg/dl Direct Bilirubin 0.2 (0-0.2) mg/dl AST 26 17 (15-37) U/L ALT 25 17 (12-78) U/L Alkaline Phosphatase 102 79 (45-117) U/L Albumin 4.0 2.9 L (3.4-5.0) gm/dl Urine 12/09/20 Range/Units 22:09 Urine Color Dark Yellow Urine Appearance Clear (Clear) Urine pH 6.0 (4.5-7.5) Ur Specific [place] 1.024 (1.000-1.030) Urine Protein Negative (Negative) Urine Glucose (UA) Negative (Negative) Medications Administered Current Inpatient Medications Acetaminophen (Acetaminophen 325 Mg Tab) 650 mg PO Q4H PRN PRN Reason: Pain or Fever Stop: 01/09/21 01:46 Last Admin: 12/10/20 08:06 Dose: 650 mg Documented by: Aspirin (Aspirin 325 Mg Ectab) 325 mg PO DAILY HUMBERTO Stop: 01/09/21 08:59 Last Admin: 12/10/20 08:09 Dose: 325 mg Documented by: Atorvastatin Calcium (Atorvastatin 40 Mg Tab) 40 mg PO DAILY HUMBERTO Stop: 01/09/21 08:59 Last Admin: 12/10/20 08:10 Dose: 40 mg Documented by: Clopidogrel Bisulfate (Clopidogrel Bisulfate 75 Mg Tab) 75 mg PO DAILY HUMBERTO Stop: 01/09/21 08:59 Last Admin: 12/10/20 08:10 Dose: 75 mg Documented by: Cyanocobalamin (Cyanocobalamin 500 Mcg Tablet (Vitamin B-12)) 1,000 mcg PO DAILY HUMBERTO Stop: 01/09/21 08:59 Last Admin: 12/10/20 08:12 Dose: 1,000 mcg Documented by: Folic Acid (Folic Acid 1 Mg Tab) 1 mg PO DAILY HUMBERTO Stop: 01/09/21 08:59 Last Admin: 12/10/20 08:10 Dose: 1 mg Documented by: Furosemide (Furosemide 20 Mg Tab) 20 mg PO QAM HUMBERTO Stop: 01/09/21 08:59 Last Admin: 12/10/20 08:10 Dose: 20 mg Documented by: Gabapentin (Gabapentin 600 Mg Tab) 600 mg PO Q8H HUMBERTO Stop: 12/11/20 14:01 Gabapentin (Gabapentin 600 Mg Tab) 600 mg PO Q12H HUMBERTO Stop: 12/12/20 14:01 Gabapentin (Gabapentin 600 Mg Tab) 600 mg PO Q24H HUMBERTO Stop: 12/13/20 14:01 Lorazepam (Ativan) 1 mg in 2 mls @ 2 mls/min IV UD PRN; Protocol PRN Reason: EtOH Withdrawl AWSS Score 6,7 Stop: 01/09/21 01:46 Lorazepam (Ativan) 2 mg in 4 mls @ 4 mls/min IV UD PRN; Protocol PRN Reason: EtOH Withdrawl AWSS Score 8,9 Stop: 01/09/21 01:46 Lorazepam (Ativan) 3 mg in 6 mls @ 4 mls/min IV ONCE PRN; Protocol PRN Reason: EtOH Withdrawl AWSS Score >=10 Stop: 01/09/21 01:46 Doxycycline Hyclate 100 mg/ (Dextrose) 110 mls @ 50 mls/hr IV Q12H HUMBERTO Stop: 12/20/20 06:59 Last Infusion: 12/10/20 10:46 Dose: Infused Documented by: Ceftriaxone Sodium 2,000 mg/ (Dextrose) 70 mls @ 100 mls/hr IV Q24H HUMBERTO; Protocol Stop: 12/20/20 20:59 Potassium Chloride/Sodium Chloride (Normal Saline W/20 Meq Kcl) 20 meq in 1,000 mls @ 125 mls/hr IV .Q8H HUMBERTO Stop: 01/09/21 16:14 Loperamide HCl (Loperamide Hcl 2 Mg Cap) 2 mg PO Q3H PRN PRN Reason: Diarrhea Stop: 01/09/21 13:16 Magnesium Oxide (Magnesium Oxide 400 Mg Tab) 400 mg PO BID [facility] Stop: 01/09/21 08:59 Last Admin: 12/10/20 08:12 Dose: 400 mg Documented by: Nitroglycerin (Nitroglycerin Sl 0.4 Mg/Tab Tab) 0.4 mg SL UD PRN PRN Reason: Chest Pain Stop: 01/09/21 01:46 Ondansetron HCl (Ondansetron Inj 2 Mg/Ml 2 Ml Vial) 4 mg IV Q6H PRN PRN Reason: Nausea Stop: 01/09/21 01:46 Pantoprazole Sodium (Pantoprazole 40 Mg Tab) [facility] Stop: 01/09/21 08:59 Last Admin: 12/10/20 08:09 Dose: 40 mg Documented by: Potassium Chloride (Potassium Chloride Crtab 20 Meq Tabcr) 20 meq PO QAM HUMBERTO Stop: 01/09/21 08:59 Last Admin: 12/10/20 09:28 Dose: 20 meq Documented by: Propranolol HCl (Propranolol Hcl 10 Mg Tab) 10 mg PO BID HUMBERTO Stop: 01/09/21 08:59 Last Admin: 12/10/20 08:10 Dose: 10 mg Documented by: Thiamine HCl (Thiamine Hcl 100 Mg Tab) 100 mg PO DAILY HUMBERTO Stop: 01/09/21 08:59 Last Admin: 12/10/20 08:11 Dose: 100 mg Documented by: Vitamin D (Cholecalciferol 400 Units 10 Mcg Tab) 400 units PO DAILY HUMBERTO Stop: 01/09/21 08:59 Last Admin: 12/10/20 08:11 Dose: 400 units Documented by:
[2020-12-10] MEDS: NSS + 20MEQ KCL 20 MEQ/1,000 ML BAG IV SCH (18:14)
[2020-12-10] MEDS: cefTRIAXone SODIUM 2,000 MG in DEXTROSE 5% 50 ML IV SCH (20:54)
[2020-12-10] MEDS ORDERED: cefTRIAXone SODIUM 1,000 MG in DEXTROSE 5% 50 ML IV SCH (21:00)
[2020-12-11] MEDS: NSS + 20MEQ KCL 20 MEQ/1,000 ML BAG IV SCH ×3 (02:18→21:17)
[2020-12-11] MEDS: DOXYCYCLINE HYCLATE 100 MG in DEXTROSE 5% 100 ML IV SCH ×2 (06:23→18:37)
[2020-12-11] MEDS: PROPRANOLOL HCL 10 MG TAB PO SCH ×2 (08:19→21:16)
[2020-12-11] MEDS: CYANOCOBALAMIN 500 MCG TABLET (VITAMIN B-12) PO SCH (08:19)
[2020-12-11] MEDS: MAGNESIUM OXIDE 400 MG TAB PO SCH ×2 (08:19→21:16)
[2020-12-11] MEDS: THIAMINE HCL 100 MG TAB PO SCH (08:20)
[2020-12-11] MEDS: ASPIRIN 325 MG ECTAB PO SCH (08:20)
[2020-12-11] MEDS: CHOLECALCIFEROL 400 UNITS 10 MCG TAB PO SCH (08:20)
[2020-12-11] MEDS: PANTOprazole 40 MG TAB PO SCH (08:20)
[2020-12-11] MEDS: ATORVASTATIN 40 MG TAB PO SCH (08:20)
[2020-12-11] MEDS: FUROSEMIDE 20 MG TAB PO SCH (08:20)
[2020-12-11] MEDS: POTASSIUM CHLORIDE CRTAB 20 MEQ TABCR PO SCH (08:21)
[2020-12-11] MEDS: FOLIC ACID 1 MG TAB PO SCH (08:21)
[2020-12-11] MEDS: CLOPIDOGREL BISULFATE 75 MG TAB PO SCH (08:21)
[2020-12-11 08:28] LABS: Hematocrit (blood only) 37.3 % (42-52); Hemoglobin 12.2 g/dL (14.0-18.0); Mean Corpuscular Hgb Conc 32.7 g/dL (32-36); Mean Corpuscular Volume 100.8 fL (80-100); Mean Platelet Volume 10.1 fL (7.4-10.4); Platelet Count 178 K/uL (130-400); RDW Standard Deviation 51.6 fL (36.4-46.3); White Blood Count 11.17 K/uL (4.8-10.8)
[2020-12-11 08:45] LABS: Basophils # (auto) 0.02 K/uL (0-0.2); Basophils % (auto) 0.2 %; Eosinophils # (auto) 0.01 K/uL (0-0.5); Eosinophils % (auto) 0.1 %; Immature Granulocytes # (auto) 0.03 K/uL (0.00-0.02); Immature Granulocytes % (auto) 0.3 %; Lymphocytes % (auto) 13.4 %; Monocytes # (auto) 0.77 K/uL (0.11-0.59); Monocytes % (auto) 6.9 %; Neutrophils # (auto) 8.84 K/uL (1.4-6.5); Neutrophils % (auto) 79.1 %
[2020-12-11 09:14] LABS: BUN Creatinine Ratio 9.4 (10-20); Calcium 7.7 mg/dl (8.5-10.1); Creatinine Clr Calc Pharmacy 87.3 ml/min; Est GFR (African American) 105.8 ml/min; Est GFR (Non-African American) 91.3 ml/min; Magnesium 1.8 mg/dl (1.8-2.4); Phosphorus 1.8 mg/dl (2.5-4.9); Potassium 3.6 mmol/L (3.5-5.1)
[2020-12-11] MEDS: LOPERAMIDE HCL 2 MG CAP PO PRN ×2 (12:11→21:15)
[2020-12-11] MEDS: GABAPENTIN 600 MG TAB PO SCH (13:03)
--- NOTE | 2020-12-11 14:54 | Hospitalist Progress Note ---
Date of Service December 11, 2020 Assessment & Plan (1) Chills with fever: Sepsis in setting of Lyme disease POA Blood culture no growth to date Urine culture negative Stool culture negative Afebrile today (2) Acute Lyme disease: Admits to having tick exposure Lyme's disease IgM antibody positive Peripheral smear pending to rule out anaplasmosis Continue Rocephin, doxy for now PT/OT (3) Gastroenteritis: Stool for C. difficile negative Stool culture negative Diarrhea slowly improving Monitor (4) Cirrhosis: Alcoholic cirrhosis with Mayo's esophagus No acute symptoms (5) HTN (hypertension): BP stable Continue current medication H/O Recent bilateral carotid stenting Continue aspirin, statin, Plavix DVT Px: SCDs Admission and Anticipated Discharge Date Admission Date: December 10, 2020 Subjective Patient is seen and examined at bedside States having generalized weakness and tiredness Diarrhea slowly improving Denies chest pain, dyspnea, dizziness, nausea, abdominal pain Offers no other complaints Review of Systems Review of Systems: All systems reviewed & are unremarkable except as noted in HPI & below Physical Exam Physical Exam: Physical Exam: Vitals signs as noted above General Appearance:Moderately built and nourished, no apparent distress Head: normocephalic, Atraumatic Eyes: normal inspection, EOMI Neck: supple, Trachea midline Respiratory/Chest: Decreased breath sounds, CTA Cardiovascular: S1, S2, No murmur Abdomen/GI:Soft, Non tender, Bowel sounds present Extremities/Musculoskeletal:normal inspection, no edema Neurologic/Psych:AAOX3, grossly no focal neurological deficits Skin: normal color, warm Results & Data Results & Data ([facility]) Vital Signs (Past 12 Hours) Vital Signs Temp Pulse Pulse Resp BP Pulse Ox 12/11/20 11:11 37.1 C 84 20 129/80 96 12/11/20 08:00 91 H 12/11/20 07:36 37.3 C 91 H 20 138/78 97 12/11/20 04:10 37.3 C 90 20 132/77 96 Laboratory Results Short CBC 12/11/20 Range/Units 08:13 WBC 11.17 H (4.8-10.8) K/uL Hgb 12.2 L (14.0-18.0) g/dL Hct 37.3 L (42-52) % Plt Count 178 (130-400) K/uL BMP 12/11/20 08:13 Sodium 140 Potassium 3.6 Chloride 109 H Carbon Dioxide 24 BUN 8 Creatinine 0.81 Glucose 96 Calcium 7.7 L
[2020-12-11] MEDS: cefTRIAXone SODIUM 2,000 MG in DEXTROSE 5% 50 ML IV SCH (21:17)
[2020-12-12] MEDS ORDERED: GABAPENTIN 600 MG TAB PO SCH (02:00)
[2020-12-12] MEDS: DOXYCYCLINE HYCLATE 100 MG in DEXTROSE 5% 100 ML IV SCH (06:01)
[2020-12-12 06:44] LABS: BUN Creatinine Ratio 10.7 (10-20); Calcium 7.3 mg/dl (8.5-10.1); Creatinine Clr Calc Pharmacy 130.9 ml/min; Est GFR (Non-African American) 107.9 ml/min; Magnesium 1.8 mg/dl (1.8-2.4); Potassium 3.8 mmol/L (3.5-5.1)
[2020-12-12] MEDS: PROPRANOLOL HCL 10 MG TAB PO SCH (07:51)
[2020-12-12] MEDS: CYANOCOBALAMIN 500 MCG TABLET (VITAMIN B-12) PO SCH (07:51)
[2020-12-12] MEDS: POTASSIUM CHLORIDE CRTAB 20 MEQ TABCR PO SCH (07:51)
[2020-12-12] MEDS: THIAMINE HCL 100 MG TAB PO SCH (07:51)
[2020-12-12] MEDS: PANTOprazole 40 MG TAB PO SCH (07:51)
[2020-12-12] MEDS: FOLIC ACID 1 MG TAB PO SCH (07:52)
[2020-12-12] MEDS: CHOLECALCIFEROL 400 UNITS 10 MCG TAB PO SCH (07:52)
[2020-12-12] MEDS: MAGNESIUM OXIDE 400 MG TAB PO SCH (07:52)
[2020-12-12] MEDS: CLOPIDOGREL BISULFATE 75 MG TAB PO SCH (07:52)
[2020-12-12] MEDS: FUROSEMIDE 20 MG TAB PO SCH (07:52)
[2020-12-12] MEDS: ATORVASTATIN 40 MG TAB PO SCH (07:52)
[2020-12-12] MEDS: ASPIRIN 325 MG ECTAB PO SCH (07:52)
--- NOTE | 2020-12-12 09:53 | Hospitalist Progress Note ---
Date of Service December 12, 2020 Assessment & Plan (1) Chills with fever: Sepsis in setting of Lyme disease POA Blood culture no growth to date Urine culture negative Stool culture negative (2) Acute Lyme disease: Admits to having tick exposure Lyme's disease IgM antibody positive Peripheral smear pending to rule out anaplasmosis Continue Rocephinbeverlyy PT/OT eval requested Plan to discharge on doxycycline (3) Gastroenteritis: Stool for C. difficile negative Stool culture negative Diarrhea resolved Monitor (4) Cirrhosis: Alcoholic cirrhosis with Mayo's esophagus No acute symptoms Continue thiamine, folic acid Refuses alcohol rehab (5) HTN (hypertension): BP stable Continue current medication H/O Recent bilateral carotid stenting Continue aspirin, statin, Plavix DVT Px: SCDs Admission and Anticipated Discharge Date Admission Date: December 10, 2020 Subjective Patient is seen and examined at bedside States feeling well today Diarrhea resolved Eager to get discharged Offers no complaints Refuses rehab, home PT Denies chest pain, dyspnea, dizziness, nausea, abdominal pain Review of Systems Review of Systems: All systems reviewed & are unremarkable except as noted in HPI & below Physical Exam Physical Exam: Physical Exam: Vitals signs as noted above General Appearance:Moderately built and nourished, no apparent distress Head: normocephalic, Atraumatic Eyes: normal inspection, EOMI Neck: supple, Trachea midline Respiratory/Chest: Decreased breath sounds, CTA Cardiovascular: S1, S2, No murmur Abdomen/GI:Soft, Non tender, Bowel sounds present Extremities/Musculoskeletal:normal inspection, no edema Neurologic/Psych:AAOX3, grossly no focal neurological deficits Skin: normal color, warm Results & Data Results & Data ([facility]) Vital Signs (Past 12 Hours) Vital Signs Temp Pulse Pulse Resp BP Pulse Ox 12/12/20 07:27 37.4 C 88 20 127/69 98 12/12/20 03:12 37.6 C H 91 H 20 125/67 97 12/11/20 23:27 37.0 C 94 H 20 112/70 97 12/11/20 22:25 88 Laboratory Results [facility] 12/12/20 05:42 Sodium 140 Potassium 3.8 Chloride 112 H Carbon Dioxide 22 BUN 6 L Creatinine 0.54 L Glucose 79 Calcium 7.3 L
--- NOTE | 2020-12-12 09:59 | Discharge Summary ---
Date of Service December 12, 2020 Admission HPI Per Admitting Provider CHIEF COMPLAINT: Fever, abdominal discomfort. HISTORY OF PRESENT ILLNESS: A 70-year-old male with past medical history significant for COPD, dyspnea on exertion, portal hypertension, history of hypertension, alcoholic cirrhosis of liver, GERD, vitamin D deficiency, idiopathic peripheral neuropathy, precordial pain, frequent falls, ongoing tobacco use, bilateral carotid stenosis, recently at [place], had bilateral carotid stent placement, comes because of fever, nausea, abdominal discomfort and diarrhea. The patient says in the morning had temperature of 101, was nauseous and had couple episodes of diarrhea and abdominal discomfort and feeling cold and chilly. His daughter brought him to the hospital. He is feeling fine,and wanted to go home, but daughter wanted him to stay and he agreed. Somewhat shaky. He says he smokes 1 packet cigarette daily and drinks alcohol 2 shots of whiskey when he drinks and he says he can go without drink 3-4 days. He says he used to drink more before. Currently, resting comfortably and hemodynamically stable. Denies any headache, no blurred vision, no earache, no runny nose, no sore throat. He has chronic cough, no chest pain. Currently, no shortness of breath, no nausea, some abdominal discomfort. Did not have any more bowel movement. Normal bladder movements. Ambulating okay at home without any support. Admission Exam Per Admitting Provider PHYSICAL EXAMINATION: GENERAL: The patient is of moderate build, not in acute distress, somewhat shaky. VITAL SIGNS: Temperature 36.9, pulse 106, respiratory rate 18, blood pressure 148/81, oxygen 97% on room air. HEENT: Pupils equal, round, reactive to light. Oral mucosa moist. NECK: No JVD, no neck masses. CARDIOVASCULAR: S1, S2 heard, regular rate and rhythm, no murmur, no gallop. RESPIRATORY SYSTEM: Normal AP diameter. No accessory muscle use. No wheezing, no crackles. ABDOMEN: Soft, bowel sounds present, nontender. No distention. CENTRAL NERVOUS SYSTEM: Cranial nerves II-XII grossly intact, nonfocal. EXTREMITIES: No edema, no erythema. Principal Diagnosis Sepsis Acute Lyme disease Gastroenteritis Discharge Data Allergies Allergy/AdvReac Type Severity Reaction Status Date / Time No Known Allergies Allergy Unknown Verified 12/09/20 20:52 Consultations 12/09/20 23:16 ED Decision to Admit Stat Procedures Performed CXR: 1. Possible atelectasis at the left base. Small left pleural effusion. 2. Atherosclerosis. Hospital Course (1) Chills with fever: Sepsis in setting of Lyme disease POA Blood culture no growth to date Urine culture negative Stool culture negative (2) Acute Lyme disease: Admits to having tick exposure Lyme's disease IgM antibody positive Peripheral smear pending to rule out anaplasmosis Continue Rocephin, doxy PT/OT eval requested Plan to discharge on doxycycline (3) Gastroenteritis: Stool for C. difficile negative Stool culture negative Diarrhea resolved Monitor (4) Cirrhosis: Alcoholic cirrhosis with Mayo's esophagus No acute symptoms Continue thiamine, folic acid Refuses alcohol rehab (5) HTN (hypertension): BP stable Continue current medication H/O Recent bilateral carotid stenting Continue aspirin, statin, Plavix DVT Px: SCDs Total Time Total Time Spent Total Time Spent (In Minutes): 40 minutes Total Time Includes: Examination of the Patient, Discharge Planning, Medication Reconciliation, Communication With Other Providers and Other Discharge Plan Discharge Items Patient Disposition: Home - Self-Care Reason For Visit: ABDOMINAL PAIN Discharge Diagnosis: Sepsis Acute Lyme disease Gastroenteritis Activity: Per Instructions section Exercise/Sports: Gradually increase as tolerated Non-emergency contact: Primary Care Provider Call non-emergency contact if: you have any medication questions, your symptoms worsen, your pain is not controlled, your pain is concerning for you and you have a fever Follow-up/Referrals: Lizeth Dixon MD [Primary Care Provider] - (Date & Time 12/18/2020 11:20 AM Provider Naye Dixon MD Department Family Medicine [facility] ) Diet: Heart Healthy Addtl Attending Provider Instructions: Follow-up with your primary care physician Dr. Dixon in 1 week as advised Complete the doxycycline course as prescribed. Your final blood cultures, Lyme's serological test pending at the time of discharge. Follow-up with your physician for results. Seek immediate medical attention if your symptoms reoccur or worsen Please take all medications as instructed on discharge list below. Please call if you have any questions or problems. You can reach a [facility] hospitalist on duty at [facility] 24 hours a day by calling [phone] Pending Studies at Discharge: Yes Studies:: Blood cultures, Lyme's Serology Stand-Alone Forms: My [facility], Smoking Cessation Medications and DC Order Prescriptions: New doxycycline hyclate 100 mg tablet 100 mg PO BID 12 Days Qty: 24 RF: 0 Continued thiamine HCl (vitamin B1) [Vitamin B-1] 100 mg Tablet 100 mg PO DAILY RF: 0 omeprazole 20 mg Capsule,Delayed Release(Dr/Ec) 20 mg PO QAM RF: 0 folic acid 1 mg Tablet 1 mg PO DAILY RF: 0 furosemide [Lasix] 20 mg Tablet 20 mg PO QAM RF: 0 potassium chloride 20 mEq Tablet Extended Release 20 meq PO QAM RF: 0 atorvastatin 40 mg tablet 40 mg PO DAILY RF: 0 cyanocobalamin (vitamin B-12) [Vitamin B-12] 1,000 mcg Tablet 1,000 mcg PO DAILY RF: 0 clopidogrel [Plavix] 75 mg Tablet 75 mg PO DAILY RF: 0 propranolol 10 mg Tablet 10 mg PO BID RF: 0 aspirin 325 mg Tablet,Delayed Release (Dr/Ec) 325 mg PO DAILY RF: 0 cholecalciferol (vitamin D3) [Vitamin D3] 10 mcg (400 unit) Tablet 10 mcg PO DAILY RF: 0 magnesium oxide 400 mg magnesium Tablet 400 mg PO BID RF: 0 Discharge Orders: Discharge Order (Routine); Ordered 12/12/20 Ordered By: Sundar Appiah Admission Data Admit Date/Time: 12/10/20 00:21 Attending Provider: Sundar Appiah Admit Provider: Flo Brumfield Primary Care Provider: Lizeth Dixon Other Providers: Flo Brumfield Other Interventions: Discharge Summary Assessment (RN) Last Done: 12/12/20 10:07
[2020-12-12 12:43] LABS: Hematocrit (blood only) 33.7 % (42-52); Hemoglobin 11.3 g/dL (14.0-18.0); Mean Corpuscular Hemoglobin 32.6 pg (25-34); Mean Corpuscular Hgb Conc 33.5 g/dL (32-36); Mean Corpuscular Volume 97.1 fL (80-100); Mean Platelet Volume 10.8 fL (7.4-10.4); Platelet Count 174 K/uL (130-400); RDW Coefficient of Variation 13.7 % (11.5-14.5); RDW Standard Deviation 48.3 fL (36.4-46.3); Red Blood Count 3.47 M/uL (4.7-6.1); White Blood Count 8.67 K/uL (4.8-10.8)
[2020-12-13] MEDS ORDERED: GABAPENTIN 600 MG TAB PO SCH (14:00)
[2020-12-16 17:08] LABS: 18KDIGG Band NON-REACTIVE; 23KDIGG Band NON-REACTIVE; 23KDIGM Band NON-REACTIVE; 28KDIGG Band NON-REACTIVE; 30KDIGG Band NON-REACTIVE; 39KDIGG Band NON-REACTIVE; 39KDIGM Band NON-REACTIVE; 41KDIGG Band NON-REACTIVE; 41KDIGM Band NON-REACTIVE; 45KDIGG Band NON-REACTIVE; 58KDIGG Band NON-REACTIVE; 66KDIGG Band NON-REACTIVE; 93KDIGG Band NON-REACTIVE; Lyme Antibodies, WB IgG NEGATIVE (NEGATIVE); Lyme Antibodies, WB IgM NEGATIVE (NEGATIVE)
== END 2020-12-12 10:10 | disposition home or self-care (01) | DRG 872 ==
LOC: ED 20:09 → SUATTDRO 12-10 00:21 → 2W 12-10 00:21